=== PATIENT | male | born 1995 | race African-American/Black ===

== ENCOUNTER 2024-04-26 12:45 | Outpatient (REF) | payer OTHER, SELFPAY ==
[2024-04-26 14:57] LABS: Anion Gap 12 (12-20); Blood Urea Nitrogen 11 mg/dL (9-16); Calcium 9.8 mg/dL (8.4-10.2); Carbon Dioxide 28 mmol/L (22-29); Chloride 102 mmol/L (96-108); Estimated Glomerular Filt Rate > 60; Glucose Random 75 mg/dL (60-115); Sodium 138 mmol/L (135-145)
[2024-04-26 15:05] LABS: TSH reflex Free T4 0.75 uIU/mL (0.32-4.0)
[2024-04-26 15:13] LABS: Folate 11.4 ng/mL (> or = 4.0); Vitamin B12 679 pg/mL (200-900)
== END 2024-04-26 12:46 | disposition home or self-care (01) ==
LOC: HO.LAB 12:45
PROVIDERS: PCP Internal Medicine; Visit Provider Psychiatry & Neurology Neurology
DX: R41.3 Other amnesia (principal)
CPT/HCPCS: 36415; 80048; 82607; 82746; 84443

== ENCOUNTER 2024-05-17 13:37 | Outpatient (REF) | payer OTHER, SELFPAY | END 2024-05-17 13:38 | disposition home or self-care (01) | LOC: HO.CT 13:37 | PROVIDERS: PCP Internal Medicine; Visit Provider Psychiatry & Neurology Neurology | DX: R41.3 Other amnesia (principal) | CPT/HCPCS: 70450 ==